=== PATIENT | male | born 1990 | race Caucasian/White ===

== ENCOUNTER 2017-12-26 12:47 | Emergency (ER) | payer SELFPAY ==
[2017-12-26 14:21] VITALS: BP 149/82
--- NOTE | 2017-12-26 14:22 | ED Physician Documentation ---
Sore Throat/Dental Pain - HISTORIAN Historian: patient - HPI Stated Complaint: Dental pain Chief Complaint: Dental Pain Additional Information: eating today sudden onset dental pain Onset: hours (1) Context: Fractured Tooth Associated Symptoms: other (none) Worsened By: heat, cold Further Comments: no - ROS CONST: no problems CVS/RESP: none GI/: denies: problems urinating, nausea, vomiting MS/SKIN/LYMPH: denies: muscle aches, rash, leg swelling, ankle swelling NEURO/PSYCH: none - PAST HX Past History: other (htn) Other History: other (fractured tooth) Immunizations: referred to PCP Allergies/Adverse Reactions: Allergies Allergy/AdvReac Type Severity Reaction Status Date / Time No Known Allergies Allergy Verified 12/26/17 12:57 Home Medications: Ambulatory Orders Medication Instructions Recorded NK 12/26/17 - SOCIAL HX Smoking History: cigarettes Alcohol Use: occasionally Drug Use: none - FAMILY HX Family History: Yes - VITAL SIGNS Vital Signs: Vital Signs Temp Pulse Resp BP Pulse Ox 98.2 F 73 18 163/101 97 12/26/17 12:58 12/26/17 12:58 12/26/17 12:58 12/26/17 12:58 12/26/17 12:58 - REVIEWED ASSESSMENTS Nursing Assessment Reviewed: Yes Vitals Reviewed: Yes Progress - Results/Orders Results/Orders: no testing ordered - Progress Progress: pt. stable entire time in er Critical Care Note - Critical Care Note Total Time (mins): 0 ED Results Lab/Radiology - Lab Results Lab Results: none ordered - Radiology Radiology Impressions: none ordered Dental Pain Physical Exam - EXAM General Appearance: alert, moderate distress Head/Neck: head nml inspection, trachea midline, no lymphadenopathy, thyroid nml. No: pain over sinuses, stiff neck Eyes: eyes nml inspection, PERRL. No: pain of sinuses Mouth/Throat: lips nml, gums nml, pharynx nml, voice nml, no drooling, other (fractured left lower 1st molar) Respiratory: no resp. distress, breath sounds nml CVS: reg. rate & rhythm, heart sounds nml Abdomen: soft, no organomegaly, normal bowel sounds, no abdominal bruit, no distension, non-tender Extremities: non-tender Skin: warm/dry, normal color Neuro/Psych: none Discharge Clincal Impression: Dental caries Referrals: Primary Doctor,No [Primary Care Provider] - 2 Days Comments: Discharged with script for amoxicillin 500 mg #30 1 pill 3x/day no refill, 2% viscous lidocaine #200 cc soak cotton ball and place on affected tooth q 30 min prn no refill, tizanidine 1 pill 4x/day as needed for pain no refill. Condition: Stable Disposition: 01 HOME, SELF-CARE Decision to Admit: NO Decision Time: 14:00
== END 2017-12-26 14:19 | disposition home or self-care (01) ==
LOC: ED 12:47
DX: K02.9 Dental caries, unspecified (principal)
CPT/HCPCS: 99283